=== PATIENT | female | born 1990 ===

== ENCOUNTER 2019-10-04 07:41 | Outpatient (CLI) | payer MEDICAID, SELFPAY ==
[2019-10-05 22:57] LABS: SARS-CoV-2 RNA Undetected (Undetected); SARS-CoV-2 Specimen Source Nasopharynx
== END 2019-10-04 08:01 ==
PROVIDERS: Visit Provider Nurse Practitioner Family
DX: Z11.59 Encounter for screening for other viral diseases (principal)
CPT/HCPCS: U0003